=== PATIENT | male | born 1990 | race Caucasian/White ===

== ENCOUNTER 2019-01-08 21:30 | Emergency (ER) | payer SELFPAY ==
[2019-01-08] MEDS ORDERED: ACETAMINOPHEN 325 MG TAB PO ONE (21:45)
--- NOTE | 2019-01-08 22:03 | RAD ---
EXAM DESCRIPTION: XR Chest,2 Views CLINICAL HISTORY: 28 years Male cough, fever, borderline sats TECHNIQUE: Two views of the chest. COMPARISON: No prior exams provided for comparison. FINDINGS: Suspected focal left perihilar infiltrate. The lungs are otherwise clear without pleural effusion or pneumothorax. No cardiomegaly or evidence of congestive failure. No acute osseous abnormalities. IMPRESSION: Focal left perihilar infiltrate. This should be followed to resolution with serial images. Electronically signed by: Sima Greenberg MD 01/08/2019 10:01 PM CDT
[2019-01-08] MEDS ORDERED: AMOXICILLIN & POT CLAVULANATE 875 MG TAB PO ONE (22:14)
--- NOTE | 2019-01-08 22:17 | ED.PDOC ---
History of Present Illness - General Chief Complaint: Fever Stated Complaint: cough, fever x 24 hours Time Seen by Provider: 01/08/19 21:41 Source: patient Exam Limitations: no limitations - History of Present Illness Initial Comments: the patient's 28-year-old male presenting to emergency room secondary to cough and fever that has been progressive over the last 2-3 days. Cough is minimally productive. No real shortness of breath and oxygen saturations ranged from 92- 94% on room air. No respiratory distress. He does have a fever. He does feel poorly. No abdominal pain. No nausea or vomiting. No diarrhea. No CPR near syncope. No history of significant infectious processes. Severity: moderate Improving Factors: nothing Worsening Factors: nothing Associated Symptoms: cough, fever/chills Allergies/Adverse Reactions: Allergies NO KNOWN ALLERGY Allergy (Verified 01/11/16 19:49) Home Medications: Ambulatory Orders Clindamycin HCl 300 mg PO TID #21 cap 06/09/16 Tramadol HCl 50 mg PO Q4H PRN #20 tab 06/09/16 Amoxicillin & Pot Clavulanate [Augmentin Tab] 875 mg PO BID #14 tab 01/08/19 Review of Systems - Review of Systems Constitutional: States: fever, malaise EENTM: States: throat pain - mild Respiratory: States: cough Cardiology: States: no symptoms reported Gastrointestinal/Abdominal: States: no symptoms reported Genitourinary: States: no symptoms reported Musculoskeletal: States: no symptoms reported Skin: States: no symptoms reported Neurological: States: no symptoms reported Endocrine: States: no symptoms reported All other Systems: No Change from Baseline Past Medical History (General) - Patient Medical History Hx Seizures: No Hx Stroke: No Hx Dementia: No Hx Asthma: No Hx of COPD: No Hx Cardiac Disorders: No Hx Congestive Heart Failure: No Hx Pacemaker: No Hx Hypertension: No Hx Thyroid Disease: No Hx Diabetes: No Hx Gastroesophageal Reflux: No Hx Renal Disease: No Hx Cancer: No Hx of HIV: No Hx Hepatitis C: No Hx MRSA: No Surgical History: other - Vaccination History Hx Tetanus, Diphtheria Vaccination: Yes Hx Influenza Vaccination: No Hx Pneumococcal Vaccination: No Immunizations Up to Date: Yes - Social History Hx Tobacco Use: No Hx Chewing Tobacco Use: No Hx Alcohol Use: No Hx Substance Use: No Hx Substance Use Treatment: No Hx Depression: No Feels Threatened In Home Enviroment: No Feels Threatened In a Relationship: No Hx Physical Abuse: No Hx Emotional Abuse: No Hx Suspected Abuse: No - Activities of Daily Living Hospice Agency (if applicable):: None - Female History Patient is a Female of Child Bearing Age (10 -59 yrs old): No Patient : No Family Medical History - Family History Mother Family History: No Known Physical Exam - Physical Exam General Appearance: Alert, Comfortable, No apparent distress Eye Exam: bilateral normal Ears, Nose, Throat: hearing grossly normal, pharyngeal erythema Neck: full range of motion, supple Respiratory: lungs clear, normal breath sounds, no respiratory distress, no accessory muscle use Cardiovascular/Chest: normal peripheral pulses, no edema, other - sinus tachycardia Peripheral Pulses: radial,right: 2+, radial,left: 2+, dorsalis pedis,right: 2+, dorsalis pedis,left: 2+ Gastrointestinal/Abdominal: non tender, soft Rectal Exam: deferred Back Exam: no CVA tenderness, no vertebral tenderness Extremity: normal range of motion, no pedal edema, normal capillary refill 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 This is consistent with symptoms and presentation. He is going to be placed on Augmentin for 7 days. He needs to keep well-hydrated. Motrin and Tylenol can be alternated to control fever. He needs to follow back up with his primary care doctor later this coming week for reevaluation. ER warnings were given for any worsening. - Results/Orders Results/Orders: rapid flu is negative Rapid strep is negative Chest x-ray shows left perihilar infiltrate. Departure - Departure Clinical Impression: Pneumonia Qualifiers: Pneumonia type: due to unspecified organism Laterality: left Lung location: unspecified part of lung Qualified Code(s): J18.9 - Pneumonia, unspecified organism Disposition: Discharge to Home or Self Care Condition: Fair Departure Forms: ED Discharge - Pt. Copy, Patient Portal Self Enrollment Instructions: Pneumonia, Adult (DC) Diet: regular diet Activity: increase activity as tolerated Prescriptions: Amoxicillin & Pot Clavulanate [Augmentin Tab] 875 mg PO BID #14 tab Home Medications: Ambulatory Orders Clindamycin HCl 300 mg PO TID #21 cap 06/09/16 Tramadol HCl 50 mg PO Q4H PRN #20 tab 06/09/16 Amoxicillin & Pot Clavulanate [Augmentin Tab] 875 mg PO BID #14 tab 01/08/19 Additional Instructions: the patient's a 28-year-old male presenting to the emergency room with what appears to be a left small perihilar pneumonia. This is consistent with symptoms and presentation. He is going to be placed on Augmentin for 7 days. He needs to keep well-hydrated. Motrin and Tylenol can be alternated to control fever. He needs to follow back up with his primary care doctor later this coming week for reevaluation. ER warnings were given for any worsening.
[2019-01-08 22:34] VITALS: BP 128/79; TEMP 102.5; O2SAT 96
== END 2019-01-08 22:30 | disposition home or self-care (01) ==
LOC: ER 21:30
DX: J18.9 Pneumonia, unspecified organism (principal)